=== PATIENT | male | born 1970 | race Caucasian/White ===

== ENCOUNTER → 2024-03-02 16:18 | Outpatient (REF) | payer OTHER, SELFPAY | LOC: RAD 16:18 | PROVIDERS: ATTENDING PHYSICIAN Family Medicine | DX: M25.562 Pain in left knee (principal) | CPT/HCPCS: 73564 ==

== ENCOUNTER → 2024-03-19 13:22 | Outpatient (REF) | payer OTHER, SELFPAY | LOC: PAVMRI 13:22 | PROVIDERS: ATTENDING PHYSICIAN Physician Assistant Surgical; FAMILY PHYSICIAN Family Medicine | DX: M23.92 Unspecified internal derangement of left knee (principal); M25.462 Effusion, left knee | CPT/HCPCS: 73721 ==

== ENCOUNTER 2024-05-04 11:21 | Outpatient (RCR) | payer OTHER, SELFPAY | END 2024-05-04 23:59 | disposition home or self-care (01) | LOC: RPT 11:21 | PROVIDERS: ATTENDING PHYSICIAN Specialist; FAMILY PHYSICIAN Family Medicine | DX: S83.242D Other tear of medial meniscus, current injury, left knee, subsequent encounter (principal); R26.89 Other abnormalities of gait and mobility | CPT/HCPCS: 97110; 97162 ==

== ENCOUNTER → 2024-08-31 12:29 | Outpatient (REF) | payer OTHER, SELFPAY | LOC: PAVMRI 12:29 | PROVIDERS: ATTENDING PHYSICIAN Family Medicine | DX: M51.360 Other intervertebral disc degeneration, lumbar region with discogenic back pain only (principal) | CPT/HCPCS: 72148 ==